=== PATIENT | male | born 1940 | race Caucasian/White ===

== ENCOUNTER 2024-08-26 14:22 | Outpatient (CLI) | payer MEDICARE, SELFPAY | END 2024-08-26 14:23 | disposition home or self-care (01) | LOC: GOSHIMG 14:23 | PROVIDERS: PCP Nurse Practitioner Family; Visit Provider Nurse Practitioner Family | DX: J90 Pleural effusion, not elsewhere classified (principal) | CPT/HCPCS: 71046 ==

== ENCOUNTER 2024-09-09 12:19 | Outpatient (CLI) | payer MEDICARE, SELFPAY ==
--- OUTSIDE RECORDS SUMMARY | 2024-09-09 12:30 | XMS_ITS | Referral Summary ---
Author Organization [facility] Address [address] [facility] [place] [address] Care Team Providers Care Insulation Blower Name Role Phone Krish Foster MD Primary Care Provider [phone] [facility],non-owned Affiliates and Associated Physician Practices is amultiple site organization consisting of ambulatory clinics and hospital sitesin [place], [place], [place] and [place]. This disclosure is being madepursuant to the Care Everywhere program and may not contain all information available regarding this patient. Last updated 18.[facility] Social History Tobacco Use Types Packs/Day Years Used Date Smoking Tobacco: Never Assessed Sex and Gender Information Value Date Recorded Sex Assigned at Not on file Gender Identity Not on file Sexual Orientation Not on file Plan of Treatment Not on file Care Teams Insulation Blower Relationship Specialty Start Date End Date Krish Foster MD [address] [place] [address] PCP - General 07/30/22
--- OUTSIDE RECORDS SUMMARY | 2024-09-09 12:30 | XMS_ITS | Clinical Summary ---
Author Organization [facility] [address] Address [address] [place] [address] Care Team Providers Care Thermostat Maker Name Role Phone Andria Espinoza MD Primary Care Provider Allergies No known active allergies Medications aspirin 81 mg tablet take 1 tablet by oral route every day 0 0 3 Active tamsulosin (FLOMAX) 0.4 mg capsule,extende d release 24hr take 1 capsule by oral route every day 1/2 hour following the same meal each day 0 0 5 Active nitroglycerin (NITROSTAT) 0.[address] 1 tablet (0.4MG) by sublingual route at the 1st sign of attack; may repeat every 5 min until relief; if pain persists after 3 tablets in 15 min, prompt medical attention is recommended 25 0 1 Active finasteride (PROSCAR) 5 mg tablet 0.5 tablet bid Activ e metoprolol tartrate (LOPRESSOR) 25 mg immediate release tablet Take 0.5 tablets (12.5 mg total) by mouth 2 (two) times a day 90 tablet 2 4 Active atorvastatin (LIPITOR) 40 mg tablet TAKE 1 TABLET BY MOUTH EVERY DAY 90 tablet 3 5 Active Active Problems Problem Noted Date Diagnosed Date Nonrheumatic aortic valve stenosis 06/14/2024 Mixed hyperlipidemia 04/24/2021 Dizziness 01/17/2020 H/O cardiomyopathy 01/17/2020 S/P coronary artery stent placement 12/10/2016 History of tobacco abuse 12/10/2016 Hypotension 03/10/2016 Overview (10/02/2016): Hypotension, unspecified hypotension type Chronic systolic heart failure 03/10/2016 Overview (10/02/2016): Chronic systolic heart failure Benign hypertension 07/02/2015 Overview (10/02/2016): HTN (hypertension), benign Coronary artery disease invo lving [place] coronary artery of [place] heart without angina pectoris 07/02/2015 Overview (10/02/2016): Coronary artery disease involving [place] coronary artery of [place] heart without angina pectoris Cardiomyopathy, ischemic 01/30/2015 Overview (10/02/2016): Ischemic cardiomyopathy Preoperative state 01/30/2015 Overview (10/02/2016): Preoperative cardiovascular examination H/O acute myocardial infarction of inferior wall 01/30/2015 Overview (10/02/2016): H/O acute myocardial infarction of inferior wall Resolved Problems Problem Noted Date Diagnosed Date Resolved Date Tobacco abuse 09/28/2017 02/11/2022 Cardiomyopathy 07/02/2015 08/19/2022 Overview (10/02/2016): Cardiomyopathy Dyslipidemia 07/02/2015 02/11/2022 Overview (10/02/2016): Dyslipidemia Tobacco dependence syndrome 01/30/2015 02/11/2022 Overview (10/02/2016): Tobacco abuse Chronic coronary artery disease 01/30/2015 02/11/2022 Overview (10/02/2016): CAD (coronary artery disease) Presence of stent in coronary artery 01/30/2015 02/24/2023 Overview (10/02/2016): S/P coronary artery stent placement Encounters Date Type Department Care Team Description 06/14/2024 10:30 AM MEDICAL AFFAIRS SPECIALIST Office Visit [facility] Cardiology [address] [place] [address] Giancarlo Conrad MD Cardiomyopathy, ischemic (Primary Dx); Chronic systolic heart failure (HCC); Benign hypertension; Coronary artery disease involving [place] coronary artery of [place] heart without angina pectoris; Nonrheumatic aortic valve stenosis from Last 3 Months Surgical History Surgery Date Site/Laterality Comments OTHER SURGICAL HISTORY 2000 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 Ear Medical History Medical History Date Comments Osteoarthritis Osteoarthritis Hx Other Medical 2000 Coronary Artery Disease - stent RCA Hx Other Medical hypercholestere yvette Hx Other Medical BPH Hx Other Medical history of toba inside account representative use Hx Other Medical Cardiomyopathy EF 45% Hyperlipidemia Cardiomyopathy (HCC) CAD (coronary artery disease) Family History Medical History Relation Name Comments Heart attack Father 2 Myocardial Infa rction; Cause of : Myocardial Infarction Other Maternal Grandfather 2 Heart condition; Cause of : Heart condition Other Mother 2 Heart condition ; Cause of : Heart condition Relation Name Status Comments Father 1 (Age 55) Father 2 Maternal Grandfather 1 Maternal Grandfather 2 Mother 1 (Age 80) Mother 2 Social History Tobacco Use Types Packs/Day Years Used Date Smoking Tobacco: Former Cigarettes Q uit: 12/10/2012 Smokeless Tobacco: Never Tobacco Cessation:Counseling Given: Not Answered Comments:Smoking History Packs/day: 0.2 Packs Alcohol Use Standard Drinks/Week Comments No 0 (1 standard drink = 0.6 oz pur e alcohol) Sex and Gender Information Value Date Recorded Sex Assigned at Not on file Legal Sex Male 2:13 AM MEDICAL AFFAIRS SPECIALIST Gender Identity Not on file Sexual Orientation Not on file Obstetrics History Last Filed Vital Signs Vital Sign Reading Time Taken Comments Blood Pressure 106/68 06/14/2024 10:43 AM MEDICAL AFFAIRS SPECIALIST Pulse 77 06/14/2024 10:43 AM MEDICAL AFFAIRS SPECIALIST Temperature - - Respiratory Rate - - Oxygen Saturation 93% 06/14/2024 10:43 AM MEDICAL AFFAIRS SPECIALIST Inhaled Oxygen Concentration - - Weight 62.1 kg (137 lb) 06/14/2024 10:43 AM MEDICAL AFFAIRS SPECIALIST Height 177.8 cm (5' 10 ) 06/14/2024 10:43 AM MEDICAL AFFAIRS SPECIALIST Body Mass Index 19.66 06/14/2024 10:43 AM MEDICAL AFFAIRS SPECIALIST Plan of Treatment Health Maintenance Due Date Last Done Comments Depression Screening 1938 Fall Risk Assessment 1940 DTaP/Tdap/Td Vaccine (1 - Tdap) 1949 Hepatitis B Screening 02/09/1956 Pneumococcal vaccine 65+ (1 of 2 - PCV) 1957 Zoster Vaccine (1 of 2) 02/09/1988 Well Visit 65+ 2003 Influenza Vaccine (#1) 2024 Insurance MEDICARE [employer] [facility] MEDICARE Address: [address] [address] Care Teams Thermostat Maker Relationship Specialty Start Date End Date Andria Espinoza MD PCP - General Family Practice 01/17/20
--- OUTSIDE RECORDS SUMMARY | 2024-09-09 12:30 | XMS_ITS | Referral Summary ---
Author Organization [facility] [place] [address] [address] Address [address] [facility] [address] [place] [address] Care Team Providers Care Wireless Field Technician Name Role Phone Andria Espinoza MD Primary Care Provider Encounters Date Type Department Care Team Description 06/14/2024 10:30 AM ELECTRIC MOTOR WINDERS ASSEMBLER Office Visit [facility] Cardiology [address] [facility] [address] [place] [address] Giancarlo Conrad MD Cardiomyopathy, ischemic (Primary Dx); Chronic systolic heart failure (HCC); Benign hypertension; Coronary artery disease involving [place] coronary artery of [place] heart without angina pectoris; Nonrheumatic aortic valve stenosis from Last 3 Months Allergies No known active allergies Medications aspirin [...] (hypertension), benign Coronary artery disease invo lving [place] coronary artery of [place] heart without angina pectoris 07/02/2015 Overview (10/02/2016): Coronary artery disease involving [place] coronary artery of [place] heart without angina pectoris Cardiomyopathy, ischemic 01/30/2015 [...] Overview (10/02/2016): S/P coronary artery stent placement Social History Tobacco Use Types Packs/Day Years Used Date Smoking Tobacco: Former Cigarettes Q uit: 12/10/2012 Smokeless Tobacco: Never Tobacco Cessation:Counseling Given: Not Answered Comments:Smoking History Packs/day: 0.2 Packs Alcohol Use Standard Drinks/Week Comments No 0 (1 standard drink = 0.6 oz pur e alcohol) Sex and Gender Information Value Date Recorded Sex Assigned at Not on file Legal Sex Male 2:13 AM ELECTRIC MOTOR WINDERS ASSEMBLER Gender Identity Not on file Sexual Orientation Not on file Last Filed Vital Signs Vital Sign Reading Time Taken Comments Blood Pressure 106/68 06/14/2024 10:43 AM ELECTRIC MOTOR WINDERS ASSEMBLER Pulse 77 06/14/2024 10:43 AM ELECTRIC MOTOR WINDERS ASSEMBLER Temperature - - Respiratory Rate - - Oxygen Saturation 93% 06/14/2024 10:43 AM ELECTRIC MOTOR WINDERS ASSEMBLER Inhaled Oxygen Concentration - - Weight 62.1 kg (137 lb) 06/14/2024 10:43 AM ELECTRIC MOTOR WINDERS ASSEMBLER Height 177.8 cm (5' 10 ) 06/14/2024 10:43 AM ELECTRIC MOTOR WINDERS ASSEMBLER Body Mass Index 19.66 06/14/2024 10:43 AM ELECTRIC MOTOR WINDERS ASSEMBLER Plan of Treatment Not on file Insurance [employer]ARE [employer] Care Teams Wireless Field Technician Relationship Specialty Start Date End Date Andria Espinoza MD PCP - General Family Practice 01/17/20
--- OUTSIDE RECORDS SUMMARY | 2024-09-09 12:30 | XMS_ITS | Encounter Summary ---
Author Organization [facility] Address [address] [facility] [place] [address] Care Team Providers Care Digital Media Planner Name Role Phone Krish Foster MD Primary Care Provider [phone] Encounter Details Date Type Department Care Team (Late st Contact Info) Description 07/30/2022 Lab Requisition [facility] DermPath Lab [address] [place] [address] Bryan Cardoso MD [address] [place] [address] Social History Tobacco Use Types Packs/Day Years Used Date Smoking Tobacco: Never Assessed Sex and Gender Information Value Date Recorded Sex Assigned at Not on file Gender Identity Not on file Sexual Orientation Not on file documented as of this encounter Plan of Treatment Not on file documented as of this encounter Procedures Procedure Name Priority Date/Time Associated Diagnosis Comments DERMATOPATHOLOGY Routine 07/29/2022 12:0 0 AM ASPHALT PAVING SUPERINTENDENT documented in this encounter Results * DERMATOPATHOLOGY (07/29/2022 12:00 AM ASPHALT PAVING SUPERINTENDENT) Case Report Dermatopathology Report Case: [id number] Authorizing Provider: Bryan Cardoso MD Collected: 07/29/2022 12:00 AM Ordering Location: [facility] DermPath Lab Received: 07/30/2022 03:56 PM Pathologist: Holly Vazquez MD Specimen: Skin, right mid ext forearm 11:41 AM ASPHALT PAVING SUPERINTENDENT DERMATOPATHOLOGY LABORATORY Final Diagnosis Specimen A. SKIN, right mid ext forearm: LARGE CELL ACANTHOMA (D23.9) (see microscopic description) 3 11:[address] [facility] DERMATOPATHOLOGY LABORATORY Clinical History R/O ISK vs. Other 3 11:[address] [facility] DERMATOPATHOLOGY LABORATORY Gross Description Specimen A: Received is one formalin filled container labeled with the patient's name and designated right mid ext forearm. The specimen consists of a shave biopsy measuring [id number]. Jar 0. 3 11:[address] [facility] DERMATOPATHOLOGY LABORATORY Microscopic Description Specimen A. SKIN, right mid ext forearm: Sections show compact orthokeratosis with acanthosis composed of slightly larger keratinocytes with basal layer hyperpigmentation. The hematoxylin and eosin stain is reviewed; immunohistochemical stains are performed to further assess the histologic features. The number of melanocytes, highlighted by MART-1/Melan-A and HMB-45 immunohistochemical staining, is only mildly increased. SOX-10 reveals melanocytes are predominantly in the basal layer without significant upward scatter. Ki67 is positive in scattered lower level intraepidermal keratinocytes. This case was also reviewed by Dr. Kathryn Price who agrees. 3 11:[address] [facility] DERMATOPATHOLOGY LABORATORY Disclaimer An external and internal positive and negative controls are appropriate for the histochemical, immunohistochemical and immunofluorescence stain(s) in this case (if any), except where stated explicitly. The performance characteristics of the stain(s) cited in this report were developed and its performance characteristic determined by the Dermatopathology Laboratory at [facility], directed by Dr. Jean-Pierre Price. These tests need not be, and therefore are not, approved by the [place] Food and Drug Administration. The tests are used for clinical purposes. Billing Codes Specimen Charges Stain Charges 60646 1 96782 29972 23815 70775 1 1 1 1 3 11:[address] [facility] DERMATOPATHOLOGY LABORATORY Embedded Images 3 11:[address] [facility] DERMATOPATHOLOGY LABORATORY Pathology/Cytolog y TISSUE SPECIMEN FROM SKIN / Unknown 07/29/2022 07/30/2022 3:[address] [facility] Bryan Cardoso MD LAB - PATHOLOGY/CYTO LOGY ORDERABLES DERMATOPATHOLOGY LABORATORY [facility] - Department of Dermatology [address], [address] [phone] documented in this encounter Visit Diagnoses Not on filedocumented in this encounter Care Teams Digital Media Planner Relationship Specialty Start Date End Date Krish Foster MD [address] [address] PCP - General 07/30/22 documented as of this encounter
--- OUTSIDE RECORDS SUMMARY | 2024-09-09 12:30 | XMS_ITS | Encounter Summary ---
Author Organization [facility] Address [address] [facility] [address] Care Team Providers Care Management Intern Name Role Phone Krish Foster MD Primary Care Provider [phone] Encounter Details Date Type Department Care Team (Late st Contact Info) Description 11/13/2022 Lab Requisition [facility] - DermPath Lab [address] [facility] [place] [address] Bryan Cardoso MD [address] [place] [address] Social History Tobacco Use Types [...] Priority Date/Time Associated Diagnosis Comments DERMATOPATHOLOGY Routine 11/12/2022 12:0 0 AM CDT documented in this encounter Results * DERMATOPATHOLOGY (11/12/2022 12:00 AM CDT) Case Report Dermatopathology Report Case: [id number] Authorizing Provider: Bryan Cardoso MD Collected: 11/12/2022 12:00 AM Ordering Location: [facility] DermPath Lab Received: 11/13/2022 04:31 PM Pathologist: Flory Chavez MD Specimens: A) - Skin, left sup dorsal forearm B) - Skin, dorsal right ulnar hand 5:40 PM CDT DERMATOPATHOLOGY LABORATORY Final Diagnosis Specimen A. 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 SKIN, dorsal right ulnar hand: HYPERPLASTIC (HYPERTROPHIC) ACTINIC KERATOSIS (L57.0) 3 5:40 PM T DERMATOPATHOLOGY LABORATORY Clinical History A: R/O KA, SCC B: SCC,KA,BCC,HAK 3 5:40 PM CDT DERMATOPATHOLOGY LABORATORY Gross Description Specimen A: Received is one formalin filled container labeled with the patient's name and designated left sup dorsal forearm. The specimen consists of a curettage and desiccation biopsy measuring [id number] mm. Jar 0. Specimen B: Received is one formalin filled container labeled with the patient's name and designated dorsal right ulnar hand. The specimen consists of a shave biopsy measuring [id number] mm. Jar 0+. 3 5:40 PM CDT DERMATOPATHOLOGY LABORATORY Microscopic Description Specimen A. SKIN, left sup dorsal forearm: Arising in the epidermis and extending into the dermis there are irregularly shaped aggregates of keratinocytes showing evidence of premature cornification. Specimen B. SKIN, dorsal right ulnar hand: There is hyperkeratosis alternating with parakeratosis. There is epidermal hyperplasia with disorderly maturation of keratinocytes with nuclear pleomorphism confined to the lower half of the epidermis. 3 5:40 PM CDT DERMATOPATHOLOGY LABORATORY Disclaimer An external and internal positive and negative controls are appropriate for the histochemical, immunohistochemical and immunofluorescence stain(s) in this case (if any), except where stated explicitly. The performance characteristics of the stain(s) cited in this report were developed and its performance characteristic determined by the Dermatopathology Laboratory at [facility], directed by Dr. Jean-Pierre Price. These tests need not be, and therefore are not, approved by the [place] Food and Drug Administration. The tests are used for clinical purposes. Billing Codes Specimen Charges Stain Charges 45572 92024 1 1 3 5:40 PM CDT DERMATOPATHOLOGY LABORATORY Embedded Images 3 5:40 PM CDT DERMATOPATHOLOGY LABORATORY Pathology/Cytology TISSUE SPECIMEN FROM SKIN / Unknown 11/12/2022 11/13/2022 4:31 PM CDT Miscellaneous samples (specimen) TISSUE SPECIMEN FROM SKIN / Unknown 11/12/2022 11/13/2022 4:31 PM CDT Bryan Cardoso MD LAB - PATHOLOGY/CYTO LOGY ORDERABLES DERMATOPATHOLOGY LABORATORY [facility] - Department of Dermatology [facility] Specialized Medicine [address] [place] [address], [address] [phone] documented in this encounter Visit Diagnoses Not on filedocumented in this encounter Care Teams Management Intern Relationship Specialty Start Date End Date Krish Foster MD [address] [place] [address] PCP - General 07/30/22 documented as of this encounter
--- OUTSIDE RECORDS SUMMARY | 2024-09-09 12:30 | XMS_ITS | Patient Health Summary ---
Author Organization [facility] Address [address] [place] [address] Care Team Providers Care Drying Frame Operator Name Role Phone Krish Foster MD Primary Care Provider [phone] Note from [facility],non-owned Affiliates and Associated Physician Practices is amultiple site organization consisting of ambulatory clinics and hospital sitesin [place], [place], [place] and [place]. This disclosure is being madepursuant to the Care Everywhere program and may not contain all information available regarding this patient. Last updated 18.[facility] Social History Tobacco Use Types Packs/Day Years Used Date Smoking Tobacco: Never Assessed Sex and Gender Information Value Date Recorded Sex Assigned at Not on file Gender Identity Not on file Sexual Orientation Not on file Procedures * DERMATOPATHOLOGY(Performed 11/12/2022) * DERMATOPATHOLOGY(Performed 07/29/2022) * DERMATOPATHOLOGY(Performed 09/08/2017) * DERMATOPATHOLOGY(Performed 05/11/2014) * DERMATOPATHOLOGY(Performed 11/05/2010) * DERMATOPATHOLOGY(Performed 10/22/2010) * DERMATOPATHOLOGY(Performed 10/09/2010) Results * DERMATOPATHOLOGY (11/12/2022 12:00 AM CDT) Only the most recent of7 resultswithin the time period is included. Case Report Dermatopathology Report Case: [id number] Authorizing Provider: Bryan Cardoso MD Collected: 11/12/2022 12:00 AM Ordering Location: [facility] DermPath Lab Received: 11/13/2022 04:31 PM Pathologist: Flory Chavez MD Specimens: A) - Skin, left sup dorsal forearm B) - Skin, dorsal right ulnar hand 5:40 PM CDT DERMATOPATHOLOGY LABORATORY Final Diagnosis Specimen A. 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 SKIN, dorsal right ulnar hand: HYPERPLASTIC (HYPERTROPHIC) ACTINIC KERATOSIS (L57.0) 5:40 PM T DERMATOPATHOLOGY LABORATORY Clinical History A: R/O KA, SCC B: SCC,KA,BCC,HAK 5:40 PM T DERMATOPATHOLOGY LABORATORY Gross Description Specimen A: Received is one formalin filled container labeled with the patient's name and designated left sup dorsal forearm. The specimen consists of a curettage and desiccation biopsy measuring 23y29m2 mm. Jar 0. Specimen B: Received is one formalin filled container labeled with the patient's name and designated dorsal right ulnar hand. The specimen consists of a shave biopsy measuring 36l02s0 mm. Jar 0+. 5:40 PM T DERMATOPATHOLOGY LABORATORY Microscopic Description Specimen A. SKIN, [...] to the lower half of the epidermis. 5:40 PM T DERMATOPATHOLOGY LABORATORY Disclaimer An external and internal positive and negative controls are appropriate for the histochemical, immunohistochemical and immunofluorescence stain(s) in this case (if any), except where stated explicitly. The performance characteristics of the stain(s) cited in this report were developed and its performance characteristic determined by the Dermatopathology Laboratory at [facility], directed by Dr. Jean-Pierre Price. These tests need not be, and therefore are not, approved by the [place] Food and Drug Administration. The tests are used for clinical purposes. Billing Codes Specimen Charges Stain Charges 20386 91576 1 1 3 5:40 PM CDT DERMATOPATHOLOGY LABORATORY Embedded Images 5:40 PM T DERMATOPATHOLOGY LABORATORY Pathology/Cytology TISSUE SPECIMEN FROM SKIN / Unknown 11/12/2022 11/13/2022 4:31 PM CDT Miscellaneous samples (specimen) TISSUE SPECIMEN FROM SKIN / Unknown 11/12/2022 11/13/2022 4:31 PM CDT Bryan Cardoso MD LAB - PATHOLOGY/CYTO LOGY ORDERABLES DERMATOPATHOLOGY LABORATORY [facility] - Department of Dermatology [facility] Medicine [address] [place] [address], [address] [phone] Care Teams Drying Frame Operator Relationship Specialty Start Date End Date Krish Foster MD [address] [place], [place] [id number] PCP - General 07/30/22
--- OUTSIDE RECORDS SUMMARY | 2024-09-09 12:30 | XMS_ITS | Clinical Summary ---
Author Organization [facility] [employer] Address [address] [facility] [place] [address] Care Team Providers Care Law Reporter Name Role Phone Krish Foster MD Primary Care Provider [phone] Source Comments [facility],non-owned Affiliates and Associated Physician Practices is amultiple site organization consisting of ambulatory clinics and hospital sitesin [place], [place], [place] and [place]. This disclosure is being madepursuant to the Care Everywhere program and may not contain all information available regarding this patient. Last updated 18.[facility] [employer] Social History Tobacco Use Types Packs/Day Years Used Date Smoking Tobacco: Never Assessed Sex and Gender Information Value Date Recorded Sex Assigned at Not on file Gender Identity Not on file Sexual Orientation Not on file Plan of Treatment Health Maintenance Due Date Last Done Comments MEDICARE AWV 12 MONTHS 1940 DTAP/TDAP/TD VACCINES (1 - Tdap) 1957 PNEUMOCOCCAL VACCINE 50+ (1 of 1 - PCV) 02/09/1988 ZOSTER VACCINE (1 of 2) 02/09/1988 Respiratory Syncytial Virus (RSV) Vaccine Pt: or over 60 yrs (1 - 1-dose 75+ series) 2013 COVID-19 VACCINE ( - 2023-2 5 season) 2024 INFLUENZA VACCINE (#1) 2024 DEPRESSION SCREENING 06/29/2024 HEPATITIS B VACCINE Aged Out No longe r eligible based on patient's age to complete this topic HIB VACCINE Aged Out No longer eligi ble based on patient's age to complete this topic HPV VACCINE Aged Out No longer eligi ble based on patient's age to complete this topic MENINGOCOCCAL (Group B) VACC INE SHARED DECISION-MAKING Aged Out No longer eligibl e based on patient's age to complete this topic MENINGOCOCCAL GROUPS A/C/Y/W VACCINE Aged Out No longer eligible b ased on patient's age to complete this topic Care Teams Law Reporter Relationship Specialty Start Date End Date Krish Foster MD [address] [place] [id number] PCP - General 07/30/22
--- NOTE | 2024-09-13 09:54 | WPDPFTINT ---
PFT Procedure Performed PFT Procedure Performed Spirometry with Pre/Post Bronchodilator Plethysmography (Lung Vol) Diffusing Cap (DLCO) Flow Vol Loop PFT Interpretation Lung volumes were measured with the body plethysmography method; the elevated FRC and RV could be due to air trapping. The remaining lung volumes are unremarkable. Spirometry showed diminished expiratory flow rates and a diminished FEV1 to FVC ratio of 48%, indicative of obstructive airway disease. Following administration of a bronchodilator there was no significant increase in expiratory flow rates. Lung diffusion capacity is moderately reduced at 49% predicted. This diminished lung diffusion capacity coupled with a low alveolar volume and a low DLCO/VA ratio indicates loss of alveolar capillary structure with loss of lung volume as seen in emphysema or interstitial lung disease. The flow-volume loop is consistent with obstructive airway disease. Impression: Moderate obstructive airway disease with evidence of air trapping and no response to bronchodilators on this testing. Moderately reduced lung diffusion capacity.
== END 2024-09-09 12:20 | disposition home or self-care (01) ==
PROVIDERS: PCP Nurse Practitioner Family; Visit Provider Family Medicine
DX: R06.02 Shortness of breath (principal); F17.210 Nicotine dependence, cigarettes, uncomplicated; R05.9 Cough, unspecified
CPT/HCPCS: 94060; 94726; 94729

== ENCOUNTER 2024-11-02 10:08 | Outpatient (CLI) | payer MEDICARE, SELFPAY ==
--- NOTE | ~2024-11-02 | CT_ITS ---
CT Scan of the Chest without Contrast: Clinical Indication: COPD Technique: Contiguous sections were acquired throughout the chest without intravenous contrast. Dose reduction technique was used on this scan by utilizing automated exposure control and iterative recon struction technique. The dose-length product (DLP) was 144.83 mGy-cm. Findings: There is lymphadenopathy anterior mediastinum and extending to the AP window region. Mildly enlarged precarinal lymph node also present. Largest node at the AP window region measures approximately 2.5 x 1.7 cm in size. There is no evidence of pleural or pericardial effusion. There is moderate to advanced emphysema. 1 cm mildly spiculated right upper lobe nodule present (axia l image 42). There is complete right lower lobe atelectasis with volume loss as well as area of presu med necrotic change. Underlying neoplasm or pneumonia may be present. There is a somewhat poorly deli neated suspected mass at the inferior left upper lobe/lingula, extending towards the hilum, possibly measuring up to approximately 2.6 cm in diameter. Images through the upper abdomen reveal possible partially imaged infrarenal abdominal aortic aneurys m, poorly evaluated on this exam.. Impression: Anterior mediastinal/AP window lymphadenopathy, suspicious for metastatic disease. Complete right lower lobe atelectasis with underlying area of cavitation or necrosis, suspicious for underlying cavitating/necrotic pneumonia versus neoplasm. Suspected 2.6 cm mass at the inferior left upper lobe/lingula. Contrast-enhanced CT should be conside red to better delineate the suspected lesion. 1 cm spiculated right upper lobe nodule, which could reflect neoplasm/metastasis. Moderate to advanced emphysema. Reviewed, dictated and finalized at location M. Impression: Anterior mediastinal/AP window lymphadenopathy, suspicious for metastatic disea se. Complete right lower lobe atelectasis with underlying area of cavitation or nec rosis, suspicious for underlying cavitating/necrotic pneumonia versus neoplasm. Suspected 2.6 cm mass at the inferior left upper lobe/lingula. Contrast-enhance d CT should be considered to better delineate the suspected lesion. 1 cm spiculated right upper lobe nodule, which could reflect neoplasm/metastasi s. Moderate to advanced emphysema.
--- OUTSIDE RECORDS SUMMARY | 2024-11-02 10:51 | XMS_ITS | Referral Summary ---
Author Organization [facility] [address] Address [address] [place] [address] Care Team Providers Care Sales Recruitment Specialist Name Role Phone Andria Espinoza MD Primary [...] (hypertension), benign Coronary artery disease invo lving [place] coronary artery of [place] heart without angina pectoris 07/02/2015 Overview (10/02/2016): Coronary artery disease involving [place] coronary artery of [place] heart without angina pectoris Cardiomyopathy, ischemic 01/30/2015 [...] on file Legal Sex Male 2:13 AM STICKER ON Gender Identity Not on file Sexual Orientation Not on file Last Filed Vital Signs Vital Sign Reading Time Taken Comments Blood Pressure 106/68 06/14/2024 10:43 AM STICKER ON Pulse 77 06/14/2024 10:43 AM STICKER ON Temperature - - Respiratory Rate - - Oxygen Saturation 93% 06/14/2024 10:43 AM STICKER ON Inhaled Oxygen Concentration - - Weight 62.1 kg (137 lb) 06/14/2024 10:43 AM STICKER ON Height 177.8 cm (5' 10 ) 06/14/2024 10:43 AM STICKER ON Body Mass Index 19.66 06/14/2024 10:43 AM STICKER ON Plan of Treatment Not on file Insurance [facility]IC[facility] Address: [facility] [address] [place] [address] Care Teams Sales Recruitment Specialist Relationship Specialty Start Date End Date Andria Espinoza MD PCP - General Family Practice 01/17/20
--- OUTSIDE RECORDS SUMMARY | 2024-11-02 10:51 | XMS_ITS | Clinical Summary ---
Author Organization [facility] [address] Address [address] [place] [address] Care Team Providers Care Director Of Acquisitions Name Role Phone Andria Espinoza MD Primary [...] (hypertension), benign Coronary artery disease invo lving [place] coronary artery of [place] heart without angina pectoris 07/02/2015 Overview (10/02/2016): Coronary artery disease involving [place] coronary artery of [place] heart without angina pectoris Cardiomyopathy, ischemic 01/30/2015 [...] Overview (10/02/2016): S/P coronary artery stent placement Surgical History Surgery Date Site/Laterality Comments OTHER SURGICAL HISTORY 2000 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 Hx Other Medical Cardiomyopathy EF [...] on file Legal Sex Male 2:13 AM REGISTRATION MANAGER Gender Identity Not on file Sexual Orientation Not on file Obstetrics History Last Filed Vital Signs Vital Sign Reading Time Taken Comments Blood Pressure 106/68 06/14/2024 10:43 AM REGISTRATION MANAGER Pulse 77 06/14/2024 10:43 AM REGISTRATION MANAGER Temperature - - Respiratory Rate - - Oxygen Saturation 93% 06/14/2024 10:43 AM REGISTRATION MANAGER Inhaled Oxygen Concentration - - Weight 62.1 kg (137 lb) 06/14/2024 10:43 AM REGISTRATION MANAGER Height 177.8 cm (5' 10 ) 06/14/2024 10:43 AM REGISTRATION MANAGER Body Mass Index 19.66 06/14/2024 10:43 AM REGISTRATION MANAGER Plan of Treatment Health Maintenance Due Date Last Done Comments Depression Screening 1938 Fall Risk Assessment 1938 DTaP/Tdap/Td Vaccine (1 - Tdap) 1949 Hepatitis B Screening 02/09/1956 Pneumococcal vaccine 65+ (1 of 2 - PCV) 1957 Zoster Vaccine (1 of 2) 02/09/1988 Well Visit 65+ 2003 Influenza Vaccine (Season Ended) 2025 Insurance [facility] MEDICARE ADVANTAGE Care Teams Director Of Acquisitions Relationship Specialty Start Date End Date Andria Espinoza MD PCP - General Family Practice 01/17/20
--- OUTSIDE RECORDS SUMMARY | 2024-11-02 10:51 | XMS_ITS | Encounter Summary ---
Author Organization [facility] Address [address] [facility] [place] [address] Care Team Providers Care Herbarium Curator Name Role Phone Krish Foster MD Primary Care Provider [phone] Encounter Details Date Type Department Care Team (Late st Contact Info) Description 07/30/2022 Lab Requisition [facility] DermPath Lab [address] [place] [address] Bryan Cardoso MD [address] [place] [address] Social History Tobacco Use Types Packs/Day Years Used Date Smoking Tobacco: Never Assessed Sex and Gender Information Value Date Recorded Sex Assigned at Not on file Legal Sex Male 6:22 AM ART MODEL Gender Identity Not on file Sexual Orientation Not on file documented as of this encounter Plan of Treatment Not on file documented as of this encounter Procedures Procedure Name Priority Date/Time Associated Diagnosis Comments DERMATOPATHOLOGY Routine 07/29/2022 12:0 0 AM ART MODEL documented in this encounter Results * DERMATOPATHOLOGY (07/29/2022 12:00 AM ART MODEL) Case Report Dermatopathology Report Case: [id number] Authorizing Provider: Bryan Cardoso MD Collected: 07/29/2022 12:00 AM Ordering Location: [facility] DermPath Lab Received: 07/30/2022 03:56 PM Pathologist: Holly Vazquez MD Specimen: Skin, right mid ext forearm 11:41 AM ART MODEL DERMATOPATHOLOGY LABORATORY Final Diagnosis Specimen A. SKIN, right mid ext forearm: LARGE CELL ACANTHOMA (D23.9) (see microscopic description) 3 11:41 AM ART MODEL DERMATOPATHOLOGY LABORATORY Clinical History R/O ISK vs. Other 3 11:[address] [facility] DERMATOPATHOLOGY LABORATORY Gross Description Specimen A: Received is one formalin filled container labeled with the patient's name and designated right mid ext forearm. The specimen consists of a shave biopsy measuring [id number]. Jar 0. 3 11:[address] [facility] DERMATOPATHOLOGY LABORATORY Microscopic Description Specimen A. SKIN, [...] Kathryn Price who agrees. 3 11:[address] [facility] DERMATOPATHOLOGY LABORATORY Disclaimer An external and internal positive and negative controls are appropriate for the histochemical, immunohistochemical and immunofluorescence stain(s) in this case (if any), except where stated explicitly. The performance characteristics of the stain(s) cited in this report were developed and its performance characteristic determined by the Dermatopathology Laboratory at [facility], directed by Dr. Jean-Pierre Price. These tests need not be, and therefore are not, approved by the [place] Food and Drug Administration. The tests are used for clinical purposes. Billing Codes Specimen Charges Stain Charges 17406 1 73858 15150 08189 44336 1 1 1 1 3 11:[address] [facility] DERMATOPATHOLOGY LABORATORY Embedded Images 3 11:[address] [facility] DERMATOPATHOLOGY LABORATORY Pathology/Cytolog y TISSUE SPECIMEN FROM SKIN / Unknown 07/29/2022 07/30/2022 3:[address] [facility] us Bryan Cardoso MD LAB - PATHOLOGY/CYTOLOGY ORD ERABLES Final Result DERMATOPATHOLOGY LABORATORY [facility] - Department of Dermatology [address] [phone] documented in this encounter Visit Diagnoses Not on filedocumented in this encounter Care Teams Herbarium Curator Relationship Specialty Start Date End Date Krish Foster MD [address] [place] [address] PCP - General 07/30/22 documented as of this encounter
--- OUTSIDE RECORDS SUMMARY | 2024-11-02 10:51 | XMS_ITS | Encounter Summary ---
Author Organization [facility] Address [address] [facility] [place] [address] Care Team Providers Care Ssas Developer Name Role Phone Krish Foster MD Primary Care Provider [phone] Encounter Details Date Type Department Care Team (Late st Contact Info) Description 11/13/2022 Lab Requisition [facility] - DermPath Lab [address] [address] Bryan Cardoso MD [address] [place] [address] Social History Tobacco Use Types Packs/Day Years Used Date Smoking Tobacco: Never Assessed Sex and Gender Information Value Date Recorded Sex Assigned at Not on file Legal Sex Male 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 Gender Identity Not on file Sexual Orientation Not on file documented as of this encounter Plan of Treatment Not on file documented as of this encounter Procedures Procedure Name Priority Date/Time Associated Diagnosis Comments DERMATOPATHOLOGY Routine 11/12/2022 12:0 0 AM CDT documented in this encounter Results * DERMATOPATHOLOGY (11/12/2022 12:00 AM CDT) Case Report Dermatopathology Report Case: [id number] Authorizing Provider: Bryan Cardoso MD Collected: 11/12/2022 12:00 AM Ordering Location: [facility] DermPath Lab Received: 11/13/2022 04:31 PM Pathologist: Flory Chavez MD Specimens: A) - Skin, left sup dorsal forearm B) - Skin, dorsal right ulnar hand 5:40 PM CDT DERMATOPATHOLOGY LABORATORY Final Diagnosis Specimen A. 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 SKIN, dorsal right ulnar hand: HYPERPLASTIC (HYPERTROPHIC) ACTINIC KERATOSIS (L57.0) 3 5:40 PM CDT DERMATOPATHOLOGY LABORATORY Clinical History A: R/O KA, SCC B: SCC,KA,BCC,HAK 3 5:40 PM CDT DERMATOPATHOLOGY LABORATORY Gross Description Specimen A: Received is one formalin filled container labeled with the patient's name and designated left sup dorsal forearm. The specimen consists of a curettage and desiccation biopsy measuring [id number] mm. Jar 0. Specimen B: Received is one formalin filled container labeled with the patient's name and designated dorsal right ulnar hand. The specimen consists of a shave biopsy measuring [id number] mm. Jar 0+. 3 5:40 PM CDT [...] characteristic determined by the Dermatopathology Laboratory at [facility], directed by Dr. Jean-Pierre Price. These tests need not be, and therefore are not, approved by the [place] Food and Drug Administration. The tests are used for clinical purposes. Billing Codes Specimen Charges Stain Charges 35284 11401 1 1 3 5:40 PM CDT DERMATOPATHOLOGY LABORATORY Embedded Images 3 5:40 PM CDT DERMATOPATHOLOGY LABORATORY Pathology/Cytology TISSUE SPECIMEN FROM SKIN / Unknown 11/12/2022 11/13/2022 4:31 PM CDT Miscellaneous samples (specimen) TISSUE SPECIMEN FROM SKIN / Unknown 11/12/2022 11/13/2022 4:31 PM CDT Bryan Cardoso MD LAB - PATHOLOGY/CYTOLOGY ORD ERABLES Final Result DERMATOPATHOLOGY LABORATORY [facility] - Department of Dermatology [facility] Medicine [address] [place] [address], [address] [phone] documented in this encounter Visit Diagnoses Not on filedocumented in this encounter Care Teams Ssas Developer Relationship Specialty Start Date End Date Krish Foster MD [address] [place] [address] PCP - General 07/30/22 documented as of this encounter
--- OUTSIDE RECORDS SUMMARY | 2024-11-02 10:51 | XMS_ITS | Clinical Summary ---
Author Organization [facility] Address [address] [place] [address] Care Team Providers Care Technician Biological Health Name Role Phone Krish Foster MD Primary Care Provider [phone] Source Comments [facility],non-owned Affiliates and Associated Physician Practices is amultiple site organization consisting of ambulatory clinics and hospital sitesin [place], [place], [place] and [place]. This disclosure is being madepursuant to the Care Everywhere program and may not contain all information available regarding this patient. 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
== END 2024-11-02 10:09 | disposition home or self-care (01) ==
PROVIDERS: PCP Family Medicine; Visit Provider Physician Assistant
DX: J44.9 Chronic obstructive pulmonary disease, unspecified (principal); R05.9 Cough, unspecified; F17.210 Nicotine dependence, cigarettes, uncomplicated; J90 Pleural effusion, not elsewhere classified; J43.9 Emphysema, unspecified
CPT/HCPCS: 71250

== ENCOUNTER 2024-11-04 12:41 | Outpatient (CLI) | payer MEDICARE, SELFPAY ==
--- OUTSIDE RECORDS SUMMARY | 2024-11-04 12:45 | XMS_ITS | Clinical Summary ---
Author Organization [facility] [employer] Address [address] [place] [address] Care Team Providers Care Line Repairer Tower Name Role Phone Krish Foster MD Primary Care Provider [phone] Source Comments [facility] [employer],non-owned Affiliates and Associated Physician Practices is amultiple site organization consisting of ambulatory clinics and hospital sitesin [place], [place], [place] and [place]. This disclosure is being madepursuant to the Care Everywhere program and may not contain all information available regarding this patient. Last updated 18.[facility] [employer] Social History Tobacco Use Types Packs/Day Years Used Date Smoking Tobacco: Never Assessed Sex and Gender Information Value Date Recorded Sex Assigned at Not on file Legal Sex Male 6:22 AM CAN TOP SETTER Gender Identity Not on file Sexual Orientation [...] age to complete this topic Insurance MEDICARE [facility] [address] MEDICARE Care Teams Line Repairer Tower Relationship Specialty Start Date End Date Krish Foster MD [address] [place] [address] PCP - General 07/30/22
--- OUTSIDE RECORDS SUMMARY | 2024-11-04 12:45 | XMS_ITS | Clinical Summary ---
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 Hx Other Medical Cardiomyopathy EF [...] on file Legal Sex Male 2:13 AM 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 FRAMER Gender Identity Not on file Sexual Orientation Not on file Obstetrics History Last Filed Vital Signs Vital Sign Reading Time Taken Comments Blood Pressure 106/68 06/14/2024 10:43 AM HANDBAG FRAMER Pulse 77 06/14/2024 10:43 AM HANDBAG FRAMER Temperature - - Respiratory Rate - - Oxygen Saturation 93% 06/14/2024 10:43 AM HANDBAG FRAMER Inhaled Oxygen Concentration - - Weight 62.1 kg (137 lb) 06/14/2024 10:43 AM HANDBAG FRAMER Height 177.8 cm (5' 10 ) 06/14/2024 10:43 AM HANDBAG FRAMER Body Mass Index 19.66 06/14/2024 10:43 AM HANDBAG FRAMER Plan of Treatment Health Maintenance Due Date Last Done Comments Depression Screening 1938 Fall Risk Assessment 1938 DTaP/Tdap/Td Vaccine (1 - Tdap) 1949 Hepatitis B Screening 02/09/1956 Pneumococcal vaccine 65+ (1 of 2 - PCV) 1957 Zoster Vaccine (1 of 2) 02/09/1988 Well Visit 65+ 2003 Influenza Vaccine (Season Ended) 2025 Insurance [facility] MEDICARE ADVANTAGE [facility] MEDICARE Address: [facility] [address] [place] [address] Care Teams Pre K Lead Teacher Relationship Specialty Start Date End Date Andria Espinoza MD PCP - General Family Practice 01/17/20
--- OUTSIDE RECORDS SUMMARY | 2024-11-04 12:45 | XMS_ITS | Referral Summary ---
Author Organization [facility] [address] Address [address] [place] [address] Care Team Providers Care Government Professor Name Role Phone Andria Espinoza MD Primary [...] (hypertension), benign Coronary artery disease invo lving [place] coronary artery of [place] heart without angina pectoris 07/02/2015 Overview (10/02/2016): Coronary artery disease involving [place] coronary artery of [place] heart without angina pectoris Cardiomyopathy, ischemic 01/30/2015 [...] on file Legal Sex Male 2:13 AM 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 Gender Identity Not on file Sexual Orientation Not on file Last Filed Vital Signs Vital Sign Reading Time Taken Comments Blood Pressure 106/68 06/14/2024 10:43 AM FINGERNAIL SCULPTURER Pulse 77 06/14/2024 10:43 AM FINGERNAIL SCULPTURER Temperature - - Respiratory Rate - - Oxygen Saturation 93% 06/14/2024 10:43 AM FINGERNAIL SCULPTURER Inhaled Oxygen Concentration - - Weight 62.1 kg (137 lb) 06/14/2024 10:43 AM FINGERNAIL SCULPTURER Height 177.8 cm (5' 10 ) 06/14/2024 10:43 AM FINGERNAIL SCULPTURER Body Mass Index 19.66 06/14/2024 10:43 AM FINGERNAIL SCULPTURER Plan of Treatment Not on file Insurance [facility] MEDICARE ADVANTAGE Care Teams Government Professor Relationship Specialty Start Date End Date Andria Espinoza MD PCP - General Family Practice 01/17/20
--- OUTSIDE RECORDS SUMMARY | 2024-11-04 12:45 | XMS_ITS | Encounter Summary ---
Author Organization [facility] Address [address] [place] [address] Care Team Providers Care Supervisor [employer] Name Role Phone Krish Foster MD Primary Care Provider [phone] Encounter Details Date Type Department Care Team (Late st Contact Info) Description 11/13/2022 Lab Requisition [facility] - DermPath Lab [address] [facility] [place] [address] Bryan Cardoso MD [address] [place] [address] Social History Tobacco Use Types Packs/Day Years Used Date Smoking Tobacco: Never Assessed Sex and Gender Information Value Date Recorded Sex Assigned at Not on file Legal Sex Male 6:22 AM TECHNOLOGY 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 Gender Identity Not on file Sexual Orientation Not on file documented as of this encounter Plan of Treatment Not on file documented as of this encounter Procedures Procedure Name Priority Date/Time Associated Diagnosis Comments DERMATOPATHOLOGY Routine 11/12/2022 12:0 0 AM CDT documented in this encounter Results * DERMATOPATHOLOGY (11/12/2022 12:00 AM CDT) Case Report Dermatopathology Report Case: [id number] Authorizing Provider: Bryan Cardoso MD Collected: 11/12/2022 12:00 AM Ordering Location: [facility] DermPath Lab Received: 11/13/2022 04:31 [...] of a curettage and desiccation biopsy measuring [id number] mm. Jar 0. Specimen B: Received is one formalin filled container labeled with the patient's name and designated dorsal right ulnar hand. The specimen consists of a shave biopsy measuring [id number] mm. Jar 0+. 3 5:40 PM CDT [...] characteristic determined by the Dermatopathology Laboratory at [facility], directed by Dr. Jean-Pierre Price. These tests need not be, and therefore are not, approved by the [place] Food and Drug Administration. The tests are used for clinical purposes. Billing Codes Specimen Charges Stain Charges 73808 26882 1 1 3 5:40 PM CDT DERMATOPATHOLOGY LABORATORY Embedded Images 3 5:40 PM CDT DERMATOPATHOLOGY LABORATORY Pathology/Cytology TISSUE SPECIMEN FROM SKIN / Unknown 11/12/2022 11/13/2022 4:31 PM CDT Miscellaneous samples (specimen) TISSUE SPECIMEN FROM SKIN / Unknown 11/12/2022 11/13/2022 4:31 PM CDT Bryan Cardoso MD LAB - PATHOLOGY/CYTOLOGY ORD ERABLES Final Result DERMATOPATHOLOGY LABORATORY [facility] - Department of Dermatology [facility] Medicine [address] [place] [address], [address] [phone] documented in this encounter Visit Diagnoses Not on filedocumented in this encounter Care Teams Supervisor [employer] Relationship Specialty Start Date End Date Kirsh Foster MD [address] [place] [address] PCP - General 07/30/22 documented as of this encounter
--- OUTSIDE RECORDS SUMMARY | 2024-11-04 12:45 | XMS_ITS | Encounter Summary ---
Author Organization [facility] Address [address] [place] [address] Care Team Providers Care Carding Machine Operator Name Role Phone Krish Foster MD Primary Care Provider [phone] Encounter Details Date Type Department Care Team (Late st Contact Info) Description 07/30/2022 Lab Requisition [facility] DermPath Lab [address] [place] [address] Bryan Cardoso MD [address] [place] [address] Social History Tobacco Use Types Packs/Day Years Used Date Smoking Tobacco: Never Assessed Sex and Gender Information Value Date Recorded Sex Assigned at Not on file Legal Sex Male 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 Gender Identity Not on file Sexual Orientation Not on file documented as of this encounter Plan of Treatment Not on file documented as of this encounter Procedures Procedure Name Priority Date/Time Associated Diagnosis Comments DERMATOPATHOLOGY Routine 07/29/2022 12:0 0 AM 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 documented in this encounter Results * DERMATOPATHOLOGY (07/29/2022 12:00 AM 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) Case Report Dermatopathology Report Case: [id number] Authorizing Provider: Bryan Cardoso MD Collected: 07/29/2022 12:00 AM Ordering Location: [facility] Derm[facility] Lab Received: 07/30/2022 03:56 PM Pathologist: Holly Vazquez MD Specimen: Skin, right mid ext forearm 11:41 AM 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 DERMATOPATHOLOGY LABORATORY Final Diagnosis Specimen A. SKIN, right mid ext forearm: LARGE CELL ACANTHOMA (D23.9) (see microscopic description) 3 11:41 AM 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 DERMATOPATHOLOGY LABORATORY Clinical History R/O ISK vs. Other 3 11:41 AM [facility] DERMATOPATHOLOGY LABORATORY Gross Description Specimen A: Received is one formalin filled container labeled with the patient's name and designated right mid ext forearm. The specimen consists of a shave biopsy measuring [id number]. Jar 0. 3 11:41 AM [facility] DERMATOPATHOLOGY LABORATORY Microscopic Description Specimen A. [...] Kathryn Price who agrees. 3 11:41 AM [facility] DERMATOPATHOLOGY LABORATORY Disclaimer An external and internal positive and negative controls are appropriate for the histochemical, immunohistochemical and immunofluorescence stain(s) in this case (if any), except where stated explicitly. The performance characteristics of the stain(s) cited in this report were developed and its performance characteristic determined by the Dermatopathology Laboratory at [facility], directed by Dr. Jean-Pierre Price. These tests need not be, and therefore are not, approved by the [place] Food and Drug Administration. The tests are used for clinical purposes. Billing Codes Specimen Charges Stain Charges 21997 1 59908 99855 22227 20747 1 1 1 1 3 11:41 AM [facility] DERMATOPATHOLOGY LABORATORY Embedded Images 3 11:41 AM [facility] DERMATOPATHOLOGY LABORATORY Pathology/Cytolog y TISSUE SPECIMEN FROM SKIN / Unknown 07/29/2022 07/30/2022 3:56 PM [facility] us Bryan Cardoso MD LAB - PATHOLOGY/CYTOLOGY ORD ERABLES Final Result DERMATOPATHOLOGY LABORATORY [facility] - Department of Dermatology [address] [phone] documented in this encounter Visit Diagnoses Not on filedocumented in this encounter Care Teams Carding Machine Operator Relationship Specialty Start Date End Date Krish Foster MD [address] [place] [address] PCP - General 07/30/22 documented as of this encounter
[2024-11-04 13:00] VITALS: PULSE 88; O2SAT 94
[2024-11-04 13:05] VITALS: PULSE 119; O2SAT 91
[2024-11-04 13:15] VITALS: PULSE 90; O2SAT 93
== END 2024-11-04 12:42 | disposition home or self-care (01) ==
LOC: ANHIMG 12:43 → ANHPFT 12:49
PROVIDERS: PCP Family Medicine; Visit Provider Physician Assistant
DX: J44.9 Chronic obstructive pulmonary disease, unspecified (principal); F17.210 Nicotine dependence, cigarettes, uncomplicated
CPT/HCPCS: 94618

== ENCOUNTER 2024-11-17 10:36 | Outpatient (CLI) | payer MEDICARE, SELFPAY ==
--- NOTE | ~2024-11-17 | PE_ITS ---
EXAMINATION: PET skull to mid thigh DATE: 11/17/2024 12:55 INDICATION: Solitary pulmonary nodule TECHNIQUE: Blood glucose level was 97 mg/dL. 10.005 mCi of 18-fluorodeoxyglucose (18-FDG) was adminis tered i.v. Low dose computed tomography (CT) images were acquired from the base of the brain to the p roximal thighs for attenuation correction and anatomic localization. Positron emission tomography (PE T) images were acquired in the same distribution beginning 55 minutes after injection. Images includi ng fused PET/CT images were reconstructed in axial, coronal, and sagittal planes. Automated exposure control technique was employed. The dose-length product was 485.41mGy-cm. COMPARISON: None FINDINGS: Head/neck: There is symmetric increased activity in the oral cavity, oropharynx including the lingual tonsils, l aryngeal muscles and ocular muscles without CT correlate, likely physiologic. No pathologically enlar ged cervical lymphadenopathy or suspicious foci of increased FDG uptake in the visualized head or nec k. Chest: Moderate to severe emphysema. Mild increased FDG uptake with maximal SUV of 3.0 associated with a 1 c m spiculated nodule at the anterior segment of the right upper lobe. There is consolidation groundgla ss opacity with associated volume loss in the right lower lobe peripheral to a 4.2 x 3.7 cm suprahila r cavitary mass in the superior segment of the right upper lobe which appears to extend across the ma michel fissure into the posterior segment of the right upper lobe which could be either malignant or inf ectious in etiology. The mass and associated FDG uptake extending into the mediastinum posterior to [facility] right mainstem bronchus with narrowing of the bronchus and irregular posterior endoluminal contour suggesting local invasion. The more peripheral opacities could represent associated secondary postob structive pneumonia and/or atelectasis. There is prominent associated FDG uptake with maximal SUV of 26.5. Additional 3.1 x 2.0 cm spiculated FDG avid perihilar mass in the lingula with maximal SUV of 9 .7 which is concerning for malignancy. There is contiguous extension of FDG avid consolidation into [facility] left hilum with maximal SUV of 8.3. This along with enlarged FDG avid prevascular lymph nodes in [facility] anterior mediastinum are consistent with metastatic disease. For reference the most anterior lymph node measures 2.9 x 1.8 cm with maximal SUV of 7.1. No pleural effusion. Heart size is normal. Ather osclerotic coronary artery calcifications. No pericardial effusion. Thoracic aorta is normal in calib er. Abdomen/pelvis/proximal thighs: Physiologic renal accumulation and excretion of FDG activity in the kidneys, bladder and along portio ns of ureters. Prostatomegaly measuring 5.3 x 4.8 cm. Photopenic defects associated with a couple low -attenuation hepatic cysts, the larger measuring 2.0 cm at the junction of the left and right hepatic lobes and the smaller measuring 1.8 cm in the posterior right hepatic lobe. Hepatic calcification co nsistent with old granulomatous disease. Otherwise normal degree and heterogenous pattern of increas ed uptake throughout the liver without radiologic correlate or dominant FDG avid lesion. The gallblad anisa, spleen and bilateral adrenal glands are normal. There is dilation of the main pancreatic duct in the distal body and tail of the pancreas with abrupt transition at a masslike region of enlargement of the proximal body of the pancreas where there is approximately 2.5 cm region of increased uptake w ith maximal SUV of 5.5 which is concerning for primary pancreatic cancer. Mild uptake scattered throu ghout the bowels without radiologic correlate, also likely physiologic. Fusiform infrarenal abdominal aortic aneurysm measuring up to 5.6 cm. There is heterogeneous attenuation within the lumen of the a neurysm with regions of increased density within a peripheral crescentic region of decreased attenuat ion which suggests intramural hematoma. The mixed attenuation of the hematoma which measures up to 2. 5 cm in thickness suggests mixed acute on chronic blood. No other abnormal foci of increased FDG upta ke or pathologically enlarged lymphadenopathy in the abdomen, pelvis or proximal thighs. Musculoskeletal: Severe lower cervical and lower lumbar spondylosis with mild to moderate spondylosis of the interveni ng thoracic and upper lumbar spine. Bone island without FDG uptake at the right femoral neck. No susp icious lytic, blastic or abnormally FDG avid bone lesions. IMPRESSION: 1. Prominent increased FDG uptake associated with a 4.2 x 3.7 cm cavitary mass centered in the superi or segment of the right lower lobe which appears to cross the fissure into the immediately adjacent r ight upper lobe as well as into the adjacent mediastinum with invasion of the right mainstem bronchus which is more concerning for malignancy and infection. 2. Additional FDG avid 3.1 x 2.0 cm left perihilar mass at the lingula also with extension the hilum and also concerning for malignancy. 3. Multiple FDG avid mediastinal lymph nodes suspicious for metastatic disease. 4. FDG avid mass at the body the pancreas concerning for primary pancreatic cancer with upstream dila tion of the upstream main pancreatic duct. 5. 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 Would recommend appropriate blood pressure control and urgent vascular surgery c onsultation velocity patient is experiencing ongoing abdominal or back pain which would be more kenya rning for emergent progression. This and the above findings were discussed with Dr. Nereida Caballero at 1: 35 PM on 11/22/2024 Reviewed, dictated and finalized at location A. IMPRESSION: 1. Prominent increased FDG uptake associated with a 4.2 x 3.7 cm cavitary mass centered in the superior segment of the right lower lobe which appears to cross the fissure into the immediately adjacent right upper lobe as well as into the adjacent mediastinum with invasion of the right mainstem bronchus which is mor e concerning for malignancy and infection. 2. Additional FDG avid 3.1 x 2.0 cm left perihilar mass at the lingula also wit h extension the hilum and also concerning for malignancy. 3. Multiple FDG avid mediastinal lymph nodes suspicious for metastatic disease. 4. FDG avid mass at the body the pancreas concerning for primary pancreatic can cer with upstream dilation of the upstream main pancreatic duct. 5. Fusiform infrarenal abdominal aortic aneurysm measuring up to 5.6 cm with li adam acute on chronic intramural hematoma. Would recommend appropriate blood pr essure control and urgent vascular surgery consultation velocity patient is exp eriencing ongoing abdominal or back pain which would be more concerning for sky rgent progression. This and the above findings were discussed with Dr. Nereida juarez at 1:35 PM on 11/22/2024
--- OUTSIDE RECORDS SUMMARY | 2024-11-17 10:40 | XMS_ITS | Encounter Summary ---
Author Organization [facility] Address [address] [place] [address] Care Team Providers Care Fac Engineer Name Role Phone Krish Foster MD Primary Care Provider [phone] Encounter Details Date Type Department Care Team (Late st Contact Info) Description 11/13/2022 Lab Requisition [facility] - DermPath Lab [address] [place] [address] Bryan Cardoso MD [address] [place] [address] Social History Tobacco Use Types Packs/Day Years Used Date Smoking Tobacco: Never Assessed Sex and Gender Information Value Date Recorded Sex Assigned at Not on file 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 Gender Identity Not on file Sexual Orientation Not on file documented as of this encounter Plan of Treatment Not on file documented as of this encounter Procedures Procedure Name Priority Date/Time Associated Diagnosis Comments DERMATOPATHOLOGY Routine 11/12/2022 12:0 0 AM CDT documented in this encounter Results * DERMATOPATHOLOGY (11/12/2022 12:00 AM CDT) Case Report Dermatopathology Report Case: [id number] Authorizing Provider: Bryan Cardoso MD Collected: 11/12/2022 12:00 AM Ordering Location: [facility] DermPath Lab Received: 11/13/2022 04:31 PM [...] (L57.0) 3 5:40 PM CDT DERMATOPATHOLOGY LABORATORY at 1740 CDT Clinical History A: R/O KA, SCC B: SCC,KA,BCC,HAK 3 5:40 PM CDT DERMATOPATHOLOGY LABORATORY Gross Description Specimen A: Received is one formalin filled container labeled with the patient's name and designated left sup dorsal forearm. The specimen consists of a curettage and desiccation biopsy measuring [id number] mm. Jar 0. Specimen B: Received is one formalin filled container labeled with the patient's name and designated dorsal right ulnar hand. The specimen consists of a shave biopsy measuring [id number] mm. Jar 0+. 3 5:40 PM CDT [...] characteristic determined by the Dermatopathology Laboratory at [facility], directed by Dr. Jean-Pierre Price. These tests need not be, and therefore are not, approved by the [place] Food and Drug Administration. The tests are used for clinical purposes. Billing Codes Specimen Charges Stain Charges 39935 28308 1 1 3 5:40 PM CDT DERMATOPATHOLOGY LABORATORY Embedded Images 3 5:40 PM CDT DERMATOPATHOLOGY LABORATORY Pathology/Cytology TISSUE SPECIMEN FROM SKIN / Unknown 11/12/2022 11/13/2022 4:31 PM CDT Miscellaneous samples (specimen) TISSUE SPECIMEN FROM SKIN / Unknown 11/12/2022 11/13/2022 4:31 PM CDT Bryan Cardoso MD LAB - PATHOLOGY/CYTOLOGY ORD ERABLES Final Result DERMATOPATHOLOGY LABORATORY [facility] - Department of Dermatology [facility] [address] [place] [address], [address] [phone] documented in this encounter Visit Diagnoses Not on filedocumented in this encounter Care Teams Fac Engineer Relationship Specialty Start Date End Date Krish Foster MD [address] [place] [address] PCP - General 07/30/22 documented as of this encounter
--- OUTSIDE RECORDS SUMMARY | 2024-11-17 10:41 | XMS_ITS | Clinical Summary ---
Author Organization [facility] Address [address] [place] [address] Care Team Providers Care French Tutor Name Role Phone Krish Foster MD Primary Care Provider [phone] Source Comments [facility],non-owned Affiliates and Associated Physician Practices is amultiple site organization consisting of ambulatory clinics and hospital sitesin [place], [place], [place] and [place]. This disclosure is being madepursuant to the Care Everywhere program and may not contain all information available regarding this patient. 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
--- OUTSIDE RECORDS SUMMARY | 2024-11-17 10:41 | XMS_ITS | Referral Summary ---
Author Organization [facility] [address] Address [address] [place] [address] Care Team Providers Care Pneumatic Tester Name Role Phone Andria Espinoza MD Primary [...] (hypertension), benign Coronary artery disease invo lving [place] coronary artery of [place] heart without angina pectoris 07/02/2015 Overview (10/02/2016): Coronary artery disease involving [place] coronary artery of [place] heart without angina pectoris Cardiomyopathy, ischemic 01/30/2015 [...] on file Legal Sex Male 2:13 AM FRANCHISE BUSINESS CONSULTANT Gender Identity Not on file Sexual Orientation Not on file Last Filed Vital Signs Vital Sign Reading Time Taken Comments Blood Pressure 106/68 06/14/2024 10:43 AM FRANCHISE BUSINESS CONSULTANT Pulse 77 06/14/2024 10:43 AM FRANCHISE BUSINESS CONSULTANT Temperature - - Respiratory Rate - - Oxygen Saturation 93% 06/14/2024 10:43 AM FRANCHISE BUSINESS CONSULTANT Inhaled Oxygen Concentration - - Weight 62.1 kg (137 lb) 06/14/2024 10:43 AM FRANCHISE BUSINESS CONSULTANT Height 177.8 cm (5' 10 ) 06/14/2024 10:43 AM FRANCHISE BUSINESS CONSULTANT Body Mass Index 19.66 06/14/2024 10:43 AM FRANCHISE BUSINESS CONSULTANT Plan of Treatment Not on file Insurance [facility] MEDICARE [facility] MEDICARE Address: [facility] [address] [place] [address] Care Teams Pneumatic Tester Relationship Specialty Start Date End Date Andria Espinoza MD PCP - General Family Practice 01/17/20
--- OUTSIDE RECORDS SUMMARY | 2024-11-17 10:41 | XMS_ITS | Encounter Summary ---
Author Organization [facility] Address [address] [place] [address] Care Team Providers Care Bus Escort Name Role Phone Krish Foster MD Primary Care Provider [phone] Encounter Details Date Type Department Care Team (Late st Contact Info) Description 07/30/2022 Lab Requisition [facility] DermPath Lab [address] [place] [address] Bryan Cardoso MD [address] [place] [address] Social History Tobacco Use Types Packs/Day Years Used Date Smoking Tobacco: Never Assessed Sex and Gender Information Value Date Recorded Sex Assigned at Not on file 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 Gender Identity Not on file Sexual Orientation Not on file documented as of this encounter Plan of Treatment Not on file documented as of this encounter Procedures Procedure Name Priority Date/Time Associated Diagnosis Comments DERMATOPATHOLOGY Routine 07/29/2022 12:0 0 AM FOOD BAGGING MACHINE OPERATOR documented in this encounter Results * DERMATOPATHOLOGY (07/29/2022 12:00 AM FOOD BAGGING MACHINE OPERATOR) Case Report Dermatopathology Report Case: [id number] Authorizing Provider: Bryan Cardoso MD Collected: 07/29/2022 12:00 AM Ordering Location: [facility] DermPath Lab Received: 07/30/2022 03:56 PM Pathologist: Holly Vazquez MD Specimen: Skin, right mid ext forearm 11:41 AM FOOD BAGGING MACHINE OPERATOR DERMATOPATHOLOGY LABORATORY Final Diagnosis Specimen A. SKIN, right mid ext forearm: LARGE CELL ACANTHOMA (D23.9) (see microscopic description) 3 11:41 AM FOOD BAGGING MACHINE OPERATOR DERMATOPATHOLOGY LABORATORY at [address] [facility] Clinical History R/O ISK vs. Other 3 11:41 AM [facility] DERMATOPATHOLOGY LABORATORY Gross Description Specimen A: Received is one formalin filled container labeled with the patient's name and designated right mid ext forearm. The specimen consists of a shave biopsy measuring [id number]. Jar 0. 3 11:41 AM [facility] DERMATOPATHOLOGY LABORATORY Microscopic Description Specimen A. [...] Kathryn Price who agrees. 3 11:41 AM [facility] DERMATOPATHOLOGY LABORATORY Disclaimer An external and internal positive and negative controls are appropriate for the histochemical, immunohistochemical and immunofluorescence stain(s) in this case (if any), except where stated explicitly. The performance characteristics of the stain(s) cited in this report were developed and its performance characteristic determined by the Dermatopathology Laboratory at [facility], directed by Dr. Jean-Pierre Price. These tests need not be, and therefore are not, approved by the [place] Food and Drug Administration. The tests are used for clinical purposes. Billing Codes Specimen Charges Stain Charges 46357 1 33317 52097 79183 72582 1 1 1 1 3 11:41 AM [facility] DERMATOPATHOLOGY LABORATORY Embedded Images 3 11:41 AM [facility] DERMATOPATHOLOGY LABORATORY Pathology/Cytolog y TISSUE SPECIMEN FROM SKIN / Unknown 07/29/2022 07/30/2022 3:56 PM [facility] us Bryan Cardoso MD LAB - PATHOLOGY/CYTOLOGY ORD ERABLES Final Result DERMATOPATHOLOGY LABORATORY [facility] - Department of Dermatology [address] [phone] documented in this encounter Visit Diagnoses Not on filedocumented in this encounter Care Teams Bus Escort Relationship Specialty Start Date End Date Krish Foster MD [address] [place] [address] PCP - General 07/30/22 documented as of this encounter
--- OUTSIDE RECORDS SUMMARY | 2024-11-17 10:41 | XMS_ITS | Clinical Summary ---
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 Other Medical Cardiomyopathy EF 45% [...] on file Legal Sex Male 2:13 AM SAUSAGE MACHINE OPERATOR Gender Identity Not on file Sexual Orientation Not on file Obstetrics History Last Filed Vital Signs Vital Sign Reading Time Taken Comments Blood Pressure 106/68 06/14/2024 10:43 AM SAUSAGE MACHINE OPERATOR Pulse 77 06/14/2024 10:43 AM SAUSAGE MACHINE OPERATOR Temperature - - Respiratory Rate - - Oxygen Saturation 93% 06/14/2024 10:43 AM SAUSAGE MACHINE OPERATOR Inhaled Oxygen Concentration - - Weight 62.1 kg (137 lb) 06/14/2024 10:43 AM SAUSAGE MACHINE OPERATOR Height 177.8 cm (5' 10 ) 06/14/2024 10:43 AM SAUSAGE MACHINE OPERATOR Body Mass Index 19.66 06/14/2024 10:43 AM SAUSAGE MACHINE OPERATOR Plan of Treatment Health Maintenance Due Date Last Done Comments Depression Screening 1938 Fall Risk Assessment 1940 DTaP/Tdap/Td Vaccine (1 - Tdap) 1949 Hepatitis B Screening 02/09/1956 Pneumococcal vaccine 65+ (1 of 2 - PCV) 1957 Zoster Vaccine (1 of 2) 02/09/1988 Well Visit 65+ 2003 Influenza Vaccine (Season Ended) 2025 Insurance [facility] MEDICARE ADVANTAGE Care Teams Insulation Sprayer Relationship Specialty Start Date End Date Andria Espinoza MD PCP - General Family Practice 01/17/20
[2024-11-17 11:03] LABS: Glucose Point of Care 97 mg/dl (65-105)
== END 2024-11-17 10:37 | disposition home or self-care (01) ==
PROVIDERS: PCP Family Medicine; Visit Provider Physician Assistant
DX: R91.8 Other nonspecific abnormal finding of lung field (principal); R59.0 Localized enlarged lymph nodes; K86.9 Disease of pancreas, unspecified; I71.43 Infrarenal abdominal aortic aneurysm, without rupture
CPT/HCPCS: 78815; A9552

== ENCOUNTER 2024-12-05 10:59 | Outpatient (CLI) | payer MEDICARE, SELFPAY ==
[2024-12-05 11:14] LABS: Basophils Absolute Auto 0.1 K/mm3 (0.0-0.1); Basophils Percent Auto 0.8 % (0.2-1.2); Eosinophils Absolute Auto 0.2 K/mm3 (0-0.3); Hematocrit 40.4 % (42.0-52.0); Hemoglobin 12.9 g/dL (14.0-18.0); Immature Granulocyte Absolute 0.03 K/mm3 (0.00-0.031); Immature Granulocyte Percent A 0.3 % (0-0.5); Lymphocytes Absolute Auto 1.22 K/mm3 (0.9-3.2); Lymphocytes Percent Auto 13.4 % (18.3-44.2); Mean Corpuscular HGB Conc 31.9 g/dl (32-36); Mean Corpuscular Hemoglobin 29.5 pg (26-34); Mean Corpuscular Volume 92.2 fl (80-100); Mean Platelet Volume 10.2 fl (7.4-10.4); Monocytes Absolute Auto 0.8 K/mm3 (0.1-0.6); Monocytes Percent Auto 8.5 % (2.6-8.5); Neutrophils Absolute Auto 6.8 K/mm3 (1.3-6.7); Platelet Count Result 295 k/mm3 (150-375); Red Blood Count 4.38 M/mm3 (4.6-6.20); Red Cell Distribution Width 14.2 % (11.5-14.5); White Blood Count 9.1 K/mm3 (4.5-10.0)
[2024-12-05 11:44] LABS: Alanine Aminotransferase 15 U/L (6-50); Albumin Level 3.7 g/dL (3.5-5.1); Alkaline Phosphatase 125 U/L (38-126); Anion Gap 9 mmol/L (4-12); Aspartate Amino Transferase 27 U/L (17-59); Bilirubin,Total 0.5 mg/dL (0.2-1.3); Blood Urea Nitrogen 23 mg/dL (9-20); Calcium 10.4 mg/dL (8.4-10.2); Carbon Dioxide 28 mmol/L (22-30); Chloride 96 mmol/L (98-107); Estimated Glomerular Filt Rate > 60; Glucose 112 mg/dL (65-110); Potassium 4.1 mmol/L (3.4-5.0); Sodium 133 mmol/L (137-145); Total Protein 7.1 g/dL (6.3-8.2)
--- OUTSIDE RECORDS SUMMARY | 2024-12-05 12:29 | XMS_ITS | Encounter Summary ---
Author Organization [facility] Address [address] [place] [address] Care Team Providers Care Stretcher Drier Operator Name Role Phone Krish Foster MD Primary Care Provider [phone] Encounter Details Date Type Department Care Team (Late st Contact Info) Description 11/13/2022 Lab Requisition [facility] - DermPath Lab [address] [place] [address] Bryan Cardoso MD [address] [place] [address] Social History Tobacco Use Types Packs/Day Years Used Date Smoking Tobacco: Never Assessed Sex and Gender Information Value Date Recorded Sex Assigned at Not on file 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 Gender Identity Not on file Sexual Orientation Not on file documented as of this encounter Plan of Treatment Not on file documented as of this encounter Procedures Procedure Name Priority Date/Time Associated Diagnosis Comments DERMATOPATHOLOGY Routine 11/12/2022 12:0 0 AM CDT documented in this encounter Results * DERMATOPATHOLOGY (11/12/2022 12:00 AM CDT) Case Report Dermatopathology Report Case: [id number] Authorizing Provider: Bryan Cardoso MD Collected: 11/12/2022 12:00 AM Ordering Location: [facility] DermPath Lab Received: 11/13/2022 04:31 [...] of a curettage and desiccation biopsy measuring [id number] mm. Jar 0. Specimen B: Received is one formalin filled container labeled with the patient's name and designated dorsal right ulnar hand. The specimen consists of a shave biopsy measuring [id number] mm. Jar 0+. 3 5:40 PM CDT [...] characteristic determined by the Dermatopathology Laboratory at [facility], directed by Dr. Jean-Pierre Price. These tests need not be, and therefore are not, approved by the [place] Food and Drug Administration. The tests are used for clinical purposes. Billing Codes Specimen Charges Stain Charges 34501 56898 1 1 3 5:40 PM CDT DERMATOPATHOLOGY LABORATORY Embedded Images 3 5:40 PM CDT DERMATOPATHOLOGY LABORATORY Pathology/Cytology TISSUE SPECIMEN FROM SKIN / Unknown 11/12/2022 11/13/2022 4:31 PM CDT Miscellaneous samples (specimen) TISSUE SPECIMEN FROM SKIN / Unknown 11/12/2022 11/13/2022 4:31 PM CDT Bryan Cardoso MD LAB - PATHOLOGY/CYTOLOGY ORD ERABLES Final Result DERMATOPATHOLOGY LABORATORY [facility] - Department of Dermatology [facility] Medicine [address] [place] [address], [address]rd Floor [address] [phone] documented in this encounter Visit Diagnoses Not on filedocumented in this encounter Care Teams Stretcher Drier Operator Relationship Specialty Start Date End Date Krish Foster MD [address] [place] [address] PCP - General 07/30/22 documented as of this encounter
--- OUTSIDE RECORDS SUMMARY | 2024-12-05 12:29 | XMS_ITS | Clinical Summary ---
Author Organization [facility] Address [address] [place] [address] Care Team Providers Care Tire Fixer Name Role Phone Krish Foster MD Primary Care Provider [phone] Source Comments [facility],non-owned Affiliates and Associated Physician Practices is amultiple site organization consisting of ambulatory clinics and hospital sitesin [place], [place], [place] and [place]. This disclosure is being madepursuant to the Care Everywhere program and may not contain all information available regarding this patient. Last updated 18.[facility] Social History Tobacco Use Types Packs/Day Years Used Date Smoking Tobacco: Never Assessed Sex and Gender Information Value Date Recorded Sex Assigned at Not on file Legal Sex Male 6:22 AM MANAGER OF PRODUCT Gender Identity Not on file Sexual Orientation [...] age to complete this topic Insurance MEDICARE [facility] [place] [address] [place] [address] MEDICARE Care Teams Tire Fixer Relationship Specialty Start Date End Date Krish Foster MD [address] [place] [address] PCP - General 07/30/22
--- OUTSIDE RECORDS SUMMARY | 2024-12-05 12:29 | XMS_ITS | Encounter Summary ---
Author Organization [facility] Address [address] [place] [address] Care Team Providers Care Sales Engagement Executive Name Role Phone Krish Foster MD Primary Care Provider [phone] Encounter Details Date Type Department Care Team (Late st Contact Info) Description 07/30/2022 Lab Requisition [facility] DermPath Lab [address] [place] [address] Bryan Cardoso MD [address] [place] [address] Social History Tobacco Use Types Packs/Day Years Used Date Smoking Tobacco: Never Assessed Sex and Gender Information Value Date Recorded Sex Assigned at Not on file Legal Sex Male 6:22 AM WOMEN'S ACTIVITIES ADVISER Gender Identity Not on file Sexual Orientation Not on file documented as of this encounter Plan of Treatment Not on file documented as of this encounter Procedures Procedure Name Priority Date/Time Associated Diagnosis Comments DERMATOPATHOLOGY Routine 07/29/2022 12:0 0 AM WOMEN'S ACTIVITIES ADVISER documented in this encounter Results * DERMATOPATHOLOGY (07/29/2022 12:00 AM WOMEN'S ACTIVITIES ADVISER) Case Report Dermatopathology Report Case: [id number] Authorizing Provider: Bryan Cardoso MD Collected: 07/29/2022 12:00 AM Ordering Location: [facility] DermPath Lab Received: 07/30/2022 03:56 PM Pathologist: Holly Vazquez MD Specimen: Skin, right mid ext forearm 11:41 AM WOMEN'S ACTIVITIES ADVISER DERMATOPATHOLOGY LABORATORY Final Diagnosis Specimen A. 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 Other 3 11:41 AM [facility] DERMATOPATHOLOGY LABORATORY Gross Description Specimen A: Received is one formalin filled container labeled with the patient's name and designated right mid ext forearm. The specimen consists of a shave biopsy measuring [id number]. Jar 0. 3 11:41 AM [facility] DERMATOPATHOLOGY LABORATORY Microscopic Description [...] Kathryn Price who agrees. 3 11:41 AM [facility] DERMATOPATHOLOGY LABORATORY Disclaimer An external and internal positive and negative controls are appropriate for the histochemical, immunohistochemical and immunofluorescence stain(s) in this case (if any), except where stated explicitly. The performance characteristics of the stain(s) cited in this report were developed and its performance characteristic determined by the Dermatopathology Laboratory at [facility], directed by Dr. Jean-Pierre Price. These tests need not be, and therefore are not, approved by the [place] Food and Drug Administration. The tests are used for clinical purposes. Billing Codes Specimen Charges Stain Charges 26593 1 52410 92118 73122 [id number] 1 1 1 1 3 11:41 AM [facility] DERMATOPATHOLOGY LABORATORY Embedded Images 3 11:41 AM [facility] DERMATOPATHOLOGY LABORATORY Pathology/Cytolog y TISSUE SPECIMEN FROM SKIN / Unknown 07/29/2022 07/30/2022 3:56 PM [facility] us Bryan Cardoso MD LAB - PATHOLOGY/CYTOLOGY ORD ERABLES Final Result DERMATOPATHOLOGY LABORATORY [facility] - Department of Dermatology [address] Floor [address] [phone] documented in this encounter Visit Diagnoses Not on filedocumented in this encounter Care Teams Sales Engagement Executive Relationship Specialty Start Date End Date Krish Foster MD [address] [place] [address] PCP - General 07/30/22 documented as of this encounter
--- OUTSIDE RECORDS SUMMARY | 2024-12-05 12:29 | XMS_ITS | Referral Summary ---
Author Organization [facility] [address] Address [address] [place] [address] Care Team Providers Care Gimp Buttonhole Machine Operator Name Role Phone Andria Espinoza MD Primary [...] (hypertension), benign Coronary artery disease invo lving morongo coronary artery of morongo heart without angina pectoris 07/02/2015 Overview (10/02/2016): Coronary artery disease involving morongo coronary artery of morongo heart without angina pectoris Cardiomyopathy, ischemic 01/30/2015 [...] on file Legal Sex Male 2:13 AM UPHOLSTERY PARTS SORTER Gender Identity Not on file Sexual Orientation Not on file Last Filed Vital Signs Vital Sign Reading Time Taken Comments Blood Pressure 106/68 06/14/2024 10:43 AM UPHOLSTERY PARTS SORTER Pulse 77 06/14/2024 10:43 AM UPHOLSTERY PARTS SORTER Temperature - - Respiratory Rate - - Oxygen Saturation 93% 06/14/2024 10:43 AM UPHOLSTERY PARTS SORTER Inhaled Oxygen Concentration - - Weight 62.1 kg (137 lb) 06/14/2024 10:43 AM UPHOLSTERY PARTS SORTER Height 177.8 cm (5' 10) 06/14/2024 10:43 AM UPHOLSTERY PARTS SORTER Body Mass Index 19.66 06/14/2024 10:43 AM UPHOLSTERY PARTS SORTER Plan of Treatment Not on file Insurance [facility] MEDICARE [facility] MEDICARE Address: [facility] [address] [place] [address] Care Teams Gimp Buttonhole Machine Operator Relationship Specialty Start Date End Date Andria Espinoza MD PCP - General Family Practice 01/17/20
--- OUTSIDE RECORDS SUMMARY | 2024-12-05 12:29 | XMS_ITS | Encounter Summary ---
Author Organization [facility] Address [address] [place] [address] Care Team Providers Care Wares Sorter Name Role Phone Unavailable Primary Care Provider Unavailabl e Reason for Visit * Reason Comments Establish Care Cancer Encounter Details Date Type Department Care Team (Late st Contact Info) Description 12/05/2024 10:30 AM CDT Office Visit [facility] Oncology and Hematology - [place] [address] [facility] [address] [place] [address] Surya Blanc MD [address] [place] [address] Malignant neoplasm of pancreas, unspecified location of malignancy (CMS/HCC) (Primary Dx) Social History Tobacco Use Types Packs/Day Years Used Date Smoking Tobacco: Every Day Cigarettes 0.9 85.1 Started: 11/01/1941 Smokeless Tobacco: Never Tobacco Cessation:Ready to Q uit: Not Asked; Counseling Given: Not Answered Alcohol Use Standard Drinks/Week Comments Not Currently 0 (1 standard drink = 0.6 oz pur e alcohol) Sex and Gender Information Value Date Recorded Sex Assigned at Not on file Legal Sex Male 3:16 PM CDT Gender Identity Not on file Sexual Orientation Not on file documented as of this encounter Last Filed Vital Signs Vital Sign Reading Time Taken Comments Blood Pressure 82/58 12/05/2024 10:14 AM CDT Pulse 89 12/05/2024 10:08 AM CDT Temperature 36.2 C (97.1 F) 12/05/2024 10:08 AM CDT Respiratory Rate 16 12/05/2024 10:08 AM CDT Oxygen Saturation 86% 12/05/2024 10:08 AM CDT Inhaled Oxygen Concentration - - Weight 52.9 kg (116 lb 9.6 oz) 12/05/2024 10:08 AM CDT Height 175.3 cm (5' 9) 12/05/2024 10:08 AM CDT Body Mass Index 17.22 12/05/2024 10:08 AM CDT documented in this encounter Progress Notes * Surya Blanc MD - 12/05/2024 11:13 AM CDT Hematology-oncology consult Note Requesting Physician Siobhan Serrano PA-C Primary Care Physician No primary care provider on file. Problem list There is no problem list on file for this patient. Previous TREATMENT ? Measurable Disease ? Reason for Visit Sai Zhao is a 84 y.o. male who was referred for consultation for metastatic disease. History of present illness This is a pleasant 84-year-old male with history of smoking 1 pack/day for almost 50 years duration slowed on his smoking in 2012. He has no previous history of malignancy. Patient has a history of hyperlipidemia, coronary artery disease status post stent placement x 2 and BPH. Patient started having some abdominal discomfort about a year ago along with some 34 pound weight loss. Has been complaining of tiredness and fatigue. Denies any nausea vomiting. He has some intermittent constipation. Chest CT was ordered on November 02 that showed anterior mediastinal lymphadenopathy with 2.6 cm mass in the left upper lobe/lingula and 1 cm right upper lobe nodule. PET scan was done on November 22 that showed prominent FDG uptake in 4.2 x 3.7 cm cavitary mass in the right lower lobe with another FDGavid 3.1 x 2 cm left perihilar mass at the lingula and extension to the hilum. There was multiple FDG avid mediastinal lymphadenopathy. There was FDG avid mass in the body of the pancreas concerning for primary pancreatic cancer. He denies any other new complaints. Past Medical History Past Medical History: Diagnosis Date Emphysema of lung (CMS/HCC) Heart disease Malignant neoplasm (CMS/HCC) Surgical History No past surgical history on file. Medications Current Outpatient Medications Medication Sig Dispense Refill atorvastatin (LIPITOR) 40 mg tablet Take 40 mg by mouth daily. finasteride (PROSCAR) 5 mg tablet Take 5 mg by mouth daily. metoprolol succinate (TOPROL XL) 25 mg Extended Release 24 hour tablet Take 25 mg by mouth daily. tamsulosin (FLOMAX) 0.4 mg capsule Take 0.4 mg by mouth daily. aspirin (ECOTRIN EC) 81 mg Tablet, Delayed Release (E.C.) Take 81 mg by mouth daily. umeclidinium-vilanteroL (Anoro Ellipta) 62.5-25 mcg/actuation Disk with Device Take by inhalation daily. No current facility-administered medications for this visit. Allergies No Known Allergies Immunizations: There is no immunization history on file for this patient. Family History Family History Problem Relation Name Age of Onset Heart Disease Father No Known Problems Mother No Known Problems Child No Known Problems Child Social History Social History Tobacco Use Smoking status: Every Day Current packs/day: 0.25 Average packs/day: 0.9 packs/day for 85.1 years (76.0 ttl pk-yrs) Types: Cigarettes Start date: [birth year]01/1941 Smokeless tobacco: Never Substance Use Topics Alcohol use: Not Currently Review of Systems Constitutional: Patient did not mention fever; no night sweats; complain of poor appetite with 34 pound weight loss in 1 year along with tiredness and fatigue NEENT: Patient did not mention headache; no change in vision; no change in hearing; no sore throat;no dysphagia Respiratory: Patient did not mention shortness of breath; no pleuritic chest pain; no cough; no hemoptysis Cardiac: Patient did not mention cardiac-like chest pain; no palpitations; no orthopnea; no PND; noDOE GI: Patient did not mention abdominal pain; no nausea; no vomiting; no diarrhea; no hematochezia; no melena, intermittent abdominal pain : Patient did not mention dysuria; no frequency; no hesitancy; no hematuria GRIT REMOVAL OPERATOR: Musculosketetal: Patient did not mention bone pain; no arthralgia; no joint swelling; no myalgia; Skin: Patient did not mention pruritis; no rash; no petechiae; no ecchymoses Endocrine: Patient did not mention polydipsia; no polyuria; no unusual weight gain Neuro: Patient did not mention headache; no change in vision; no sensory changes; no muscle weakness; no confusion; no seizures Psych: Patient did not mention anxiety; no depression; Physical Exam Vitals: As per nursing note Constitutional: Well developed, well nourished, no acute distress, non-toxic appearance Teeth and gum. No signs of infection or swelling. Eyes: PERRL, conjunctiva normal HEENT: Atraumatic, external ears normal, nose normal, oropharynx moist, no pharyngeal exudates. no sinus tenderness Neck- normal range of motion, no tenderness, supple Cardiovascular: Normal rate, normal rhythm, no murmurs, no gallops, no rubs GI: Soft, nondistended, normal bowel sounds, nontender, no splenomegaly, no hepatomegaly, no mass, no rebound, no guarding : No costovertebral angle tenderness Musculoskeletal: No edema, no tenderness, no deformities. Back- no tenderness Integument: Well hydrated, no rash, Digits and nails inspection normal Lymphatic: No lymphadenopathy noted Neurologic: Alert & oriented x 3, CN 2-12 normal, normal motor function, normal sensory function, no focal deficits noted Psychiatric: Speech and behavior appropriate ? labs No results found for this or any previous visit (from the past 24 hours). Pathology ? Imaging & Other Studies Performance Status? Assessment / Plan: ? Likely metastatic pancreatic cancer. Patient is a 84-year-old male with history of hyperlipidemia and BPH along with coronary artery disease status post stent placement x 2. He has a history of smoking 1 pack/day for more than 50 years duration. Patient has no previous history of malignancy. He has been complaining of weight loss with poor appetite and abdominal discomfort.Chest CT was ordered on November 02 that showed anterior mediastinal lymphadenopathy with 2.6 cm mass in the left upperlobe/lingula and 1 cm right upper lobe nodule. PET scan was done on November 22 that showed prominent FDG uptake in 4.2 x 3.7 cm cavitary mass in the right lower lobe with another FDG avid 3.1 x 2 cm leftperihilar mass at the lingula and extension to the hilum. There was multiple FDG avid mediastinal lymphadenopathy. There was FDG avid mass in the body of the pancreas concerning for primary pancreatic cancer. I have discussed this finding with patient and the family in detail. There is a concern for metastatic pancreatic cancer versus lung cancer. We discussed staging of lung and pancreatic cancer with management and prognosis in detail. Patient is not interested in any treatment at this time and would like to even think about getting a biopsy done. In the meantime I will order labs including CBC, CMPand CA 19-9. I will discuss these results with patient next week and hopefully by then they will have their decision made for further management. We also discussed comfort care and hospice. I have answered all the questions to patient and the family satisfaction. Coronary artery disease status post resplint placement. Patient is on aspirin. Hypotension. I recommended to hold on metoprolol at and discussed with the jig mill operator. Hyperlipidemia. He is on Lipitor. BPH. He is on Flomax. Thank you very much for allowing me to participate in Sai Zhao's evaluation and management. Please feel free to contact if I can be of any further assistance in your patient???s care requiringhematology or oncology evaluation. Sincerely, ? ? Surya Blanc M.D. cell BACCO COUNSELING He was counseled to discontinue tobacco/nicotine use. Surya Blanc MD ,12/05/2024 11:13 AM ? Total time spent 60 minutes, two third of the total time spent counseling patient [id number]. CC:?Siobhan Serrano PA-C documented in this encounter Plan of Treatment Upcoming Encounters Date Type Department Care Team (Late st Contact Info) Description 12/12/2024 4:30 PM CDT Telephone Check Up [facility] Oncology and Hematology - [place] [address] [facility] [address] [place] [address] Surya Blanc MD [address] [place] [address] Scheduled Orders Name Type Priority Associated Diagnoses Orde r Schedule CBC WITH DIFFERENTIAL Lab Stat Malignant neoplasm of pancreas, unspecified location of malignancy (CMS/HCC) Expected: 12/05/2024, Expires: 12/05/2025 COMPREHENSIVE METABOLIC PANEL Lab Stat Malignant neoplasm of pancreas, unspecified location of malignancy (CMS/HCC) Expected: 12/05/2024, Expires: 12/05/2025 CANCER ANTIGEN 19-9 Lab Routine Malignant neoplasm of pancreas, unspecified location of malignancy (CMS/HCC) Expected: 12/05/2024, Expires: 12/05/2025 documented as of this encounter Visit Diagnoses Diagnosis Malignant neoplasm of pancreas, unspecified location of malignancy (CMS/HCC)- Primary documented in this encounter
--- OUTSIDE RECORDS SUMMARY | 2024-12-05 12:29 | XMS_ITS | Clinical Summary ---
Author Organization [facility] Address [address] [place] [address] Care Team Providers Care Hot Mill Supervisor Name Role Phone Unavailable Primary Care Provider Unavailabl e Allergies No known active allergies Medications atorvastatin (LIPITOR) 40 mg tablet Take 40 mg by mouth daily. Active finasteride (PROSCAR) 5 mg tablet Take 5 mg by mouth daily. Active metoprolol succinate (TOPROL XL) 25 mg Extended Release 24 hour tablet Take 25 mg by mouth daily. Active tamsulosin (FLOMAX) 0.4 mg capsule Take 0.4 mg by mouth daily. Active aspirin (ECOTRIN EC) 81 mg Tablet, Delayed Release (E.C.) Take 81 mg by mouth daily. Active umeclidinium-vi lanteroL (Anoro Ellipta) 62.5-25 mcg/actuation Disk with Device Take by inhalation daily. Active Active Problems No known active problems Encounters Date Type Department Care Team Description 12/05/2024 10:30 AM CDT Office Visit [facility] Oncology and Hematology - [place] [address] [facility] [address] [place] [address] Surya Blanc MD Malignant neoplasm of pancreas, unspecified location of malignancy (CMS/HCC) (Primary Dx) from Last 3 Months Family History Medical History Relation Name Comments No Known Problems Child 1 No Known Problems Child 2 Heart Disease Father No Known Problems Mother Relation Name Status Comments Child 1 Alive Child 2 Alive Father Mother Social History Tobacco Use Types Packs/Day Years [...] Mass Index 17.22 12/05/2024 10:08 AM CDT Plan of Treatment Upcoming Encounters Date Type Department Care Team (Late st Contact Info) Description 12/12/2024 4:30 PM CDT Telephone Check Up [facility] Oncology and Hematology - [place] [address] [facility] [address] [place] [address] Surya Blanc MD [address] [facility] [address] [place] [address] Health Maintenance Due Date Last Done Comments DTAP/TDAP/TD VACCINES (1 - Tdap) 1959 PNEUMOCOCCAL VACCINE 50+ YEARS (1 of 1 - PCV) 02/08/19 88 ZOSTER VACCINE (1 of 2) 02/09/1988 RSV VACCINE (60+ or ) (1 - 1-dose 75+ series) 2013 INFLUENZA VACCINE (#1) 2024 Medicare [place]vant[place] ([place]) Prev entative Visit/Annual Wellness Visit 06/29/2024 Insurance [facility] [id number]
--- OUTSIDE RECORDS SUMMARY | 2024-12-05 12:29 | XMS_ITS | Clinical Summary ---
Author Organization [facility] [address] Address [address] [place] [address] Care Team Providers Care Boat Painter Name Role Phone Andria Espinoza MD Primary [...] (hypertension), benign Coronary artery disease invo lving [place] coronary artery of [place] heart without angina pectoris 07/02/2015 Overview (10/02/2016): Coronary artery disease involving [place] coronary artery of [place] heart without angina pectoris Cardiomyopathy, ischemic 01/30/2015 [...] BPH Hx Other Medical history of toba client account representative use Hx Other Medical Cardiomyopathy [...] on file Legal Sex Male 2:13 AM CLINICAL REHABILITATION AIDE Gender Identity Not on file Sexual Orientation Not on file Obstetrics History Last Filed Vital Signs Vital Sign Reading Time Taken Comments Blood Pressure 106/68 06/14/2024 10:43 AM CLINICAL REHABILITATION AIDE Pulse 77 06/14/2024 10:43 AM CLINICAL REHABILITATION AIDE Temperature - - Respiratory Rate - - Oxygen Saturation 93% 06/14/2024 10:43 AM CLINICAL REHABILITATION AIDE Inhaled Oxygen Concentration - - Weight 62.1 kg (137 lb) 06/14/2024 10:43 AM CLINICAL REHABILITATION AIDE Height 177.8 cm (5' 10) 06/14/2024 10:43 AM CLINICAL REHABILITATION AIDE Body Mass Index 19.66 06/14/2024 10:43 AM CLINICAL REHABILITATION AIDE Plan of Treatment Health Maintenance Due Date Last Done Comments Depression Screening 1938 Fall Risk Assessment 1940 DTaP/Tdap/Td Vaccine (1 - Tdap) 1949 Hepatitis B Screening 02/09/1956 Pneumococcal vaccine 65+ (1 of 2 - PCV) 1957 Zoster Vaccine (1 of 2) 02/09/1988 Well Visit 65+ 2003 Influenza Vaccine (Season Ended) 2025 Insurance [facility] MEDICARE [facility] MEDIC[facility] Address: [facility] [address] [place] [address] Care Teams Boat Painter Relationship Specialty Start Date End Date Andria Espinoza MD PCP - General Family Practice 01/17/20
[2024-12-07 05:24] LABS: CA 19-9 80 U/mL (<34)
== END 2024-12-05 11:00 | disposition home or self-care (01) ==
LOC: ANHLAB 11:01
PROVIDERS: PCP Family Medicine; Visit Provider Internal Medicine Hematology & Oncology
DX: C25.9 Malignant neoplasm of pancreas, unspecified (principal)
CPT/HCPCS: 36415; 80053; 85025; 86301